=== PATIENT | female | born 1955 | race American Indian/Alaskan Native ===

== ENCOUNTER 2019-06-23 09:55 | Outpatient (CLI) | payer BC, MEDICARE ==
--- NOTE | 2019-06-26 12:03 | Mammography Report ---
DIGITAL SCREENING MAMMOGRAM WITH CAD, 06/23/2019 INDICATION: Routine screening mammography. Breast cancer survivor status post left mastectomy with im plant reconstruction. TECHNIQUE: Digital right 2D mammography was obtained in the craniocaudal and mediolateral oblique pr ojections. This examination was interpreted with the benefit of Computer-Aided Detection analysis. COMPARISON: 06/22/2018 FINDINGS: Breast Density: There are scattered areas of fibroglandular density. There is no evidence of dominant mass, suspicious calcifications or architectural distortion in eithe r breast. IMPRESSION: No mammographic evidence of malignancy. Follow up recommendation: Routine yearly BI-RADS Category 1: Negative. A "normal" or negative report should not discourage follow up or biopsy of a clinically significant f inding. A written summary of these findings will be mailed to the patient. The patient will be entered into a mammography reporting system which will generate a reminder letter for the patient's next appointmen t at the appropriate interval. The [employer] recommends yearly mammograms starting at age 40 and continuing as l flora as a woman is in good health. Breast MRI is recommended for women with an approximate 20-25% or greater lifetime risk of breast cancer, including women with a strong family history of breast or ova samia cancer or who have been treated for Hodgkin's disease. Signer Name: Scott Drake MD Signed: 06/26/2019 11:58 AM Workstation Name: [id number]
== END 2019-06-23 09:56 | disposition home or self-care (01) ==
LOC: SPVWC 09:55
PROVIDERS: ATTEND Physician Assistant
DX: Z12.31 Encounter for screening mammogram for malignant neoplasm of breast (principal)

== ENCOUNTER 2020-08-12 11:22 | Outpatient (CLI) | payer OTHER ==
--- NOTE | 2020-08-12 14:01 | Mammography Report ---
DIGITAL SCREENING MAMMOGRAM WITH CAD, 08/12/2020 INDICATION: Routine screening mammography. TECHNIQUE: Digital bilateral 2D mammography was obtained in the craniocaudal and mediolateral obliq ue projections. This examination was interpreted with the benefit of Computer-Aided Detection analysi s. COMPARISON: 06/2219 FINDINGS: Breast Density: There are scattered areas of fibroglandular density. There is no evidence of dominant mass, suspicious calcifications or architectural distortion in eithe r breast. IMPRESSION: Follow up recommendation: Routine yearly BI-RADS Category 1: Negative. A "normal" or negative report should not discourage follow up or biopsy of a clinically significant f inding. A written summary of these findings will be mailed to the patient. The patient will be entered into a mammography reporting system which will generate a reminder letter for the patient's next appointmen t at the appropriate interval. The [employer] recommends yearly mammograms starting at age 40 and continuing as l flora as a woman is in good health. Breast MRI is recommended for women with an approximate 20-25% or greater lifetime risk of breast cancer, including women with a strong family history of breast or ova samia cancer or who have been treated for Hodgkin's disease. Signer Name: Chao So MD Signed: 08/12/2020 1:57 PM Workstation Name: [id number]
== END 2020-08-12 11:23 | disposition home or self-care (01) ==
LOC: SPVWC 11:22
PROVIDERS: ATTEND Physician Assistant
DX: Z12.31 Encounter for screening mammogram for malignant neoplasm of breast (principal)

== ENCOUNTER 2021-01-21 14:28 | Outpatient (CLI) | payer OTHER ==
--- NOTE | 2021-01-21 15:46 | Mammography Report ---
DEXA BONE DENSITY SCAN INDICATION: Z78.0 ASYMPTOMATIC AGE-RELATED POSTMENOPAUSAL STATE. COMPARISON: None available. DEFINITIONS: BMD = Bone Mineral Density T-score = BMD related to mean peak bone mass of a young child (mean expressed in standard deviation) Z-score = age matched BMD is expressed in SD World Health Organization (WHO) diagnostic criteria Normal T score > -1 SD Osteopenia T score between -1 and SD Osteoporosis T score -2.5 SD or below. LUMBAR SPINE (L1-L4): Bone mineral density (BMD) is 0.887 g/cm2. T-score is -2.4 (standard deviations of Young Adult mean). Z-score is -0.3 (standard deviations of Age Matched mean). LEFT FEMORAL NECK: Bone mineral density (BMD) is 0.788 g/cm2. T-score is -1.6 (standard deviations of Young Adult mean). Z-score is -0.5 (standard deviations of Age Matched mean). IMPRESSION: 1. WHO Classification: Osteoporosis. Fracture Risk: High. Signer Name: Kenyon Moore MD Signed: 01/21/2021 3:41 PM Workstation Name: [id number]
--- NOTE | 2021-01-21 16:26 | XRay Report ---
LEFT KNEE HISTORY: Pain. COMPARISON: None. TECHNIQUE: 3 views of the left knee obtained. FINDINGS: Bones: No fracture or dislocation. Joint spaces: Maintained. Soft tissues: No significant abnormality. Additional findings: None. IMPRESSION: Unremarkable left knee radiographs. No acute osseous abnormality or significant degenerative change. Signer Name: Kenyon Moore MD Signed: 01/21/2021 4:22 PM Workstation Name: [id number]
== END 2021-01-21 14:29 | disposition home or self-care (01) ==
LOC: SPVWC 14:28
DX: Z13.820 Encounter for screening for osteoporosis (principal); M25.562 Pain in left knee; Z78.0 Asymptomatic menopausal state
CPT/HCPCS: 77080

== ENCOUNTER 2021-01-24 13:50 | Outpatient (CLI) | payer OTHER ==
--- NOTE | 2021-01-24 16:45 | Ultrasound Report ---
RIGHT DIGITAL DIAGNOSTIC MAMMOGRAM WITH CAD CONVENTIONAL, 01/24/2021 BILATERAL LIMITED BREAST ULTRASOUND CLINICAL INFORMATION / INDICATION: Personal history of breast cancer with left mastectomy and reconst ruction, right palpable abnormality and pain for 2 months, left breast pain TECHNIQUE: Digital right mammographic imaging was performed. Spot compression views were obtained. Li mited ultrasound was performed. This examination was interpreted with the benefit of Computer-Aided D etection (CAD) analysis. COMPARISON: Right mammograms 06/23/2019, 08/12/2020 FINDINGS: Breast Density: There are scattered areas of fibroglandular density. MAMMOGRAPHIC FINDINGS: No significant change is seen in the area of clinical concern in the right cassandra ast. Mammography was not available the time we were notified of left breast complaints. ULTRASOUND FINDINGS: Targeted ultrasound evaluation was performed of the area of interest. In the are a of palpable complaint and pain in the right breast no abnormalities are seen. In the area of report ed pain in the left breast no abnormalities are noted. Implant is seen. IMPRESSION: No mammographic or sonographic evidence of malignancy. Follow up recommendation: Clinical follow-up. BI-RADS Category 2: Benign. A "normal" or negative report should not discourage follow up or biopsy of a clinically significant f inding. A written summary of these findings will be mailed to the patient. The patient will be entered into a mammography reporting system which will generate a reminder letter for the patient's next appointmen t at the appropriate interval. According to the [employer], yearly mammograms are recommended starting at age 40 and continuing as long as a woman is in good health. Breast MRI is recommended for women with an cesia roximately 20-25% or greater lifetime risk of breast cancer, including women with a strong family his tory of breast or ovarian cancer and women who have been treated for Hodgkin's disease. Signer Name: Jackson Garcia MD Signed: 01/24/2021 4:40 PM Workstation Name: [id number]
== END 2021-01-24 13:51 | disposition home or self-care (01) ==
LOC: MAMMO 13:50
DX: N64.4 Mastodynia (principal); N63.14 Unspecified lump in the right breast, lower inner quadrant; Z85.3 Personal history of malignant neoplasm of breast